=== PATIENT | female | born 2000 | race Caucasian/White ===

== ENCOUNTER 2024-04-28 17:21 | Emergency (ER) | payer OTHER, SELFPAY ==
[2024-04-28 17:27] VITALS: BP 117/94
[2024-04-28 17:51] LABS: % Basophils 0.7 % (0-2); % Eosinophils 1.2 % (0-6); % Immature Granulocytes 0.3 % (0-0.5); % Lymphocytes 39.9 % (20.5-51.1); % Monocytes 7.6 % (1.7-9.3); % Neutrophils 50.3 % (42.2-75.2); Absolute Eosinophils 0.1 10^3/uL (0-0.7); Absolute Lymphocytes 2.4 10^3/uL (1.2-3.4); Absolute Monocytes 0.5 10^3/uL (0.1-0.6); Mean Corp Hgb Conc. 34.2 g/dL (33.0-37.0); Mean Corpuscular Hgb 30.6 pg (27.0-31.0); Mean Corpuscular Volume 89.4 fL (81.0-99.0); Mean Platelet Volume 10.3 fL (7.4-10.4); Nucleated Red Blood Cells % 0 %; Platelet Count 311 10^3/uL (130-400); Red Blood Cell Count 4.25 10^6/uL (4.20-5.40); Red Cell Dist. Width 12.3 % (11.5-14.5)
[2024-04-28 18:11] LABS: HCG, Serum Qualitative Screen Negative
[2024-04-28 18:16] LABS: ALT (SGPT) 20 U/L (0-35); AST (SGOT) 28 U/L (14-36); Albumin 4.8 g/dl (3.5-5.0); Alkaline Phosphatase 57 U/L (38-126); Blood Urea Nitrogen 9 mg/dl (7-17); Calcium 9.3 mg/dl (8.4-10.2); Carbon Dioxide 25 mmol/L (22-30); Chloride 103 mmol/L (98-107); Glucose 106 mg/dl (70-99); Lipase 122 U/L (23-300); Potassium 3.6 mmol/L (3.5-5.1); Sodium 138 mmol/L (135-145); Total Bilirubin 0.6 mg/dl (0.2-1.3); Total Protein 7.3 g/dl (6.3-8.2); eGFR > 60.00
--- NOTE | 2024-04-28 18:49 | ED.GENMED ---
History of Present Illness
<Laura Swan PA-C - Last Filed: 04/29/24 00:27>
General
Chief Complaint: Abdominal Symptoms
Source: patient
Exam Limitations: none
Time Seen by Provider: 04/28/24 18:05
Nursing documentation reviewed up to this point in time: agreed with
History of Present Illness
History of Present Illness:
Patient is a 23-year-old female presenting to the emergency department with 3 weeks of lower abdominal discomfort and associated urinary frequency. Patient states she has had lower abdominal cramping type pain with some urinary frequency ongoing
for the past few weeks. She was seen in urgent care earlier today where she had urinalysis which showed possible infection although given ongoing symptoms patient was sent to the emergency department for further evaluation.
Patient denies any associated fever or chills. Patient denies any anorexia, nausea, vomiting, diarrhea, or constipation. All patient has been noticing some urinary frequency she denies any dysuria or hematuria. Patient denies any abnormal vaginal
bleeding or vaginal discharge. No history of STDs. She is sexually active with 1 partner. She is getting next week. Last menstrual period was last week.
Review of Systems
<Laura Swan PA-C - Last Filed: 04/29/24 00:27>
Review of Systems
Allergies reviewed?: Yes
All Other Systems: ROS reviewed and negative except as documented in HPI and ROS
Phy Exam
<Laura Swan PA-C - Last Filed: 04/29/24 00:27>
Physical Exam
Physical Exam:
Vitals: Hypertensive, otherwise vital signs stable. Afebrile
General: Patient is well appearing, no acute distress. Nontoxic-appearing
Skin: Warm and dry, no rashes or lesions
Head: Normocephalic, atraumatic
Eyes: Sclera nonicteric. EOMs intact. No nystagmus.
Throat: Protecting airway
Neck: Normal ROM, no cervical spine tenderness, no meningismus
Cardiac: Regular rate and rhythm, no murmurs.
Pulm: Normal respiratory effort, no wheezes, rales, rhonchi heard on exam.
Abdomen: Abdomen soft throughout with very mild suprapubic tenderness. No rebound tenderness or guarding. No rash. No CVA tenderness.
Extremities: No evidence of cyanosis or edema. Great distal pulse
Neuro: AAOx3. CN II-XII intact. No focal neurologic deficits.
Psychiatric: Normal affect.
Course
<Laura Swan PA-C - Last Filed: 04/29/24 00:27>
Orders/Labs/Results
Orders:
Orders
04/28/24 17:29
Test Result ONCE
04/28/24 17:34
Complete Blood Count/With Diff Urgent
Comprehensive Metabolic Panel Urgent
HCG, Serum Qualitative Screen Urgent
Lipase Urgent
Urinalysis Reflex To Culture Urgent
Date Specimen was Collected: 04/28/24
Time Specimen was Collected: 17:29
Urine Microscopic Reflex Cult Urgent
Urine Culture Urgent
MONIQUE Source: U
Specimen Description:
Date Specimen was Collected: 04/28/24
Time Specimen was Collected: 17:29
04/28/24 18:40
0.9% Sodium Chloride 1000 ml [Nss] 1,000 ml IV BOLUS
Ketorolac [Toradol] 15 mg IV NOW STA
US Kidneys [US Renal Only W/O Bladder] Urgent
Comment:
Reason For Exam: urinary frequency, lower abdominal pain
US Pelvis W Transvag Combined Urgent
Reason For Exam: lower abdominal pain
04/28/24 21:29
Sulfamethox./Trimethoprim Ds [Bactrim Ds 800 mg/160 mg] 1 tablet PO NOW STA
Abnormal Lab Results
04/28/24
17:34
Glucose 106 H mg/dl
(70-99)
Urine Ketones 1+ A
(Negative)
Urine Nitrite (Reflex) Positive A
(Negative)
Urine Bilirubin 3+ A
(Negative)
Urine Urobilinogen 4+ A
(Neg - 1+)
Leukocyte Esterase Rfl Trace A
(Negative)
Urine Bacteria (Reflex) Few A
(Negative)
04/28/24 17:34
04/28/24 17:34
Vital Signs
Initial and Last Documented VS:
Initial Vital Signs
Temp Pulse Resp BP Pulse Ox
98.4 F 64 18 117/94 93
04/28/24 17:27 04/28/24 17:27 04/28/24 17:27 04/28/24 17:27 04/28/24 17:27
Last Documented Vital Signs
Temp Pulse Resp BP Pulse Ox
98.4 F 63 16 120/78 99
04/28/24 17:27 04/28/24 20:21 04/28/24 20:21 04/28/24 20:21 04/28/24 20:21
<Ladi Sage MD - Last Filed: 04/28/24 21:19>
Orders/Labs/Results
Orders:
Orders
04/28/24 17:29
Test Result ONCE
04/28/24 17:34
Complete Blood Count/With Diff Urgent
Comprehensive Metabolic Panel Urgent
HCG, Serum Qualitative Screen Urgent
Lipase Urgent
Urinalysis Reflex To Culture Urgent
Date Specimen was Collected: 04/28/24
Time Specimen was Collected: 17:29
Urine Microscopic Reflex Cult Urgent
Urine Culture Urgent
MONIQUE Source: U
Specimen Description:
Date Specimen was Collected: 04/28/24
Time Specimen was Collected: 17:29
04/28/24 18:40
0.9% Sodium Chloride 1000 ml [Nss] 1,000 ml IV BOLUS
Ketorolac [Toradol] 15 mg IV NOW STA
US Kidneys [US Renal Only W/O Bladder] Urgent
Comment:
Reason For Exam: urinary frequency, lower abdominal pain
US Pelvis W Transvag Combined Urgent
Reason For Exam: lower abdominal pain
04/28/24 21:29
Sulfamethox./Trimethoprim Ds [Bactrim Ds 800 mg/160 mg] 1 tablet PO NOW STA
Abnormal Lab Results
04/28/24
17:34
Glucose 106 H mg/dl
(70-99)
Urine Ketones 1+ A
(Negative)
Urine Nitrite (Reflex) Positive A
(Negative)
Urine Bilirubin 3+ A
(Negative)
Urine Urobilinogen 4+ A
(Neg - 1+)
Leukocyte Esterase Rfl Trace A
(Negative)
Urine Bacteria (Reflex) Few A
(Negative)
04/28/24 17:34
04/28/24 17:34
Vital Signs
Initial and Last Documented VS:
Initial Vital Signs
Temp Pulse Resp BP Pulse Ox
98.4 F 64 18 117/94 93
04/28/24 17:27 04/28/24 17:27 04/28/24 17:27 04/28/24 17:27 04/28/24 17:27
Last Documented Vital Signs
Temp Pulse Resp BP Pulse Ox
98.4 F 63 16 120/78 99
04/28/24 17:27 04/28/24 20:21 04/28/24 20:21 04/28/24 20:21 04/28/24 20:21
<Laura Swan PA-C - Last Filed: 04/29/24 00:27>
MDM/Problems Addressed
Differential Diagnosis Includes:
Not limited to: UTI, pyelonephritis, ovarian cyst, ovarian torsion, kidney stone, endometriosis
MDM/Problems Addressed:
23-year-old female presenting with 3 weeks of lower abdominal discomfort and associated urinary frequency. No associated fever, chills, nausea, vomiting, diarrhea, constipation. No dysuria or hematuria. No abnormal vaginal charge or bleeding.
Patient sent from urgent care for further evaluation. Vital signs are stable on arrival, patient is afebrile. Physical exam as above. Patient is very well-appearing, in no apparent distress. Abdomen is soft with very mild suprapubic tenderness.
No rebound tenderness or guarding. There is no CVA tenderness. No overlying rash, ecchymoses of abdomen. Heart regular rate and rhythm. Lungs clear bilaterally. Labs were obtained in triage which show no clinically significant abnormalities.
No leukocytosis. test is negative. Will obtain urinalysis. Will give patient IV fluids, 15 of Toradol. Will check pelvic ultrasound and ultrasound of kidneys to rule out hydroureter or any signs of obstructive process.
Urinalysis noted. Possible UTI given positive nitrate and leukocyte Estrace although few WBCs seen. A urine culture will be sent. Pelvic ultrasound shows no evidence of acute abnormality. Possible small uterine fibroid which I do not suspect to
be causing patient symptoms. There is bilateral ovarian blood flow documented. Renal ultrasound without any abnormalities.
I do doubt intra-abdominal infection given symptoms been ongoing for the past 3 weeks and patient is afebrile without any leukocytosis any benign abdominal exam. Will treat patient for suspected mild urinary tract infection with a course of
Bactrim. Advised patient to follow-up with primary care and [facility] in a few days if symptoms persist for further evaluation. Return precautions discussed with patient at length. She is comfortable with plan. Patient seen with attending physician
Chronic conditions affecting care:
N/A
Acute Exacerbation and/or Progression of Chronic Illness:
N/A
<Laura Swan PA-C - Last Filed: 04/29/24 00:27>
*Radiology
Radiology exam reviewed: radiology read reviewed
*Pulse Oximetry
Patient hypoxic: no
*EKG
Interpreted by ED Provider?: NA
*Insecticide Maker Interpretation
Rate: Insecticide Maker- N/A
*Critical Care Note
Total Time (30-74mins, 75-104mins- exclusive of procedures): Not Applicable
ED Attending Note
<Laura Swan PA-C - Last Filed: 04/29/24 00:27>
-
Portions of this chart may have been created with voice recognition software.� Occasional wrong word or��sound alike� substitutions may have occurred due to the inherent limitations of voice recognition software.
<Ladi Sage MD - Last Filed: 04/28/24 21:19>
ED Attending Note
Patient seen and examined by attending physician: Yes
I performed the substantive portion of visit, reviewed & personally made and approve the management plan that is documented in note by myself or ANUJ.: Yes
ED Attending Note:
Patient looks extremely well and comfortable. Patient complains of increased frequency of urination and lower abdominal pain for 2 weeks. Patient has no fever or elevated white blood cell count. On exam, her abdomen is soft and she has no
specific area of tenderness. Is doubtful she has an intra-abdominal infection given the timeframe, her lack of elevated white blood cell count, and her being afebrile. Patient may have UTI. Patient also may have bacterial vaginitis, however, she
does deny any fishy discharge.
Discharge Plan
Departure
Patient Disposition: Home (Routine Discharge)
Date of Disposition: 04/28/24
Time of Disposition: 21:18
Patient with high blood pressure during this ER visit?: No
Discharge Problem:
Abdominal pain, UTI (urinary tract infection)
Instructions: Urinary Tract Infection, Adult ED, Abdominal Pain
Prescriptions:
New
sulfamethoxazole-trimethoprim [Bactrim DS] 800-160 mg tablet
1 tab PO BID 7 Days Qty: 14 0RF
Referrals:
Eldon Pabon PA-C [Family Provider] - Follow up in 2-3 days
Activity Restrictions/Additional Instructions:
RETURN TO THE EMERGENCY DEPARTMENT WITH ANY FEVERS, CHILLS, WORSENING ABDOMINAL PAIN, SEVERE BACK PAIN, INTRACTABLE NAUSEA/VOMITING, INTRACTABLE PAIN, WORSENING IN CURRENT SYMPTOMS OR ANY OTHER CONCERNS
-Prescription has been sent to your pharmacy. You can take this twice a day for the next 1 week
-It is important that you stay well-hydrated. You can take Tylenol and/or Motrin as needed for discomfort.
-It is important you follow-up with your primary care provider and/or [facility] for further evaluation/management if symptoms persist
Monitor your symptoms closely return to the emergency department any acute worsening/new symptoms
Interventions
Interventions:
*Risk Screen - Suicide Last Done: 04/28/24 17:27
*General Assessment Last Done: 04/28/24 17:27
*Neglect/Abuse Screening Last Done: 04/28/24 17:27
ED- Fall Risk Assessment Last Done: 04/28/24 21:39
*ED COVID-19 Vaccine History Last Done: 04/28/24 17:27
*Nursing Disposition Last Done: 04/28/24 21:39
FL-Qgdmvc-Uzgvcezcze Assessment Last Done: 04/28/24 17:35
Discharge Date and Time
Discharge Date/Time: 04/28/24 21:39
Print Language: [id number]
[2024-04-28 18:51] LABS: Urine Albumin Negative (Neg - Trace); Urine Bilirubin 3+ (Negative); Urine Character Clear (Clear); Urine Glucose Negative (Negative); Urine Ketone 1+ (Negative); Urine Leukocyte Trace (Negative); Urine Nitrite Positive (Negative); Urine Occult Blood Negative (Negative); Urine Specific Gravity 1.015 (<1.030); Urine Urobilinogen 4+ (Neg - 1+)
[2024-04-28] MEDS: TORADOL 15 MG IV (18:53)
[2024-04-28] MEDS: NSS 1000 IV (18:53)
[2024-04-28 18:55] LABS: Urine Color Orange
[2024-04-28 19:11] LABS: Urine Red Blood Cell 0-2 /HPF (0-2)
[2024-04-28 19:12] LABS: Urine Bacteria Few (Negative)
[2024-04-28 20:21] VITALS: BP 120/78
[2024-04-28] MEDS: BACTRIM DS 800 MG/160 MG 1 TABLET PO (21:34)
== END 2024-04-28 21:39 | disposition home or self-care (01) ==
LOC: EMR 17:21
PROVIDERS: Emergency Medicine; EMERGENCY PHYSICIAN Emergency Medicine; FAMILY PHYSICIAN Physician Assistant Medical
DX: N39.0 Urinary tract infection, site not specified (principal); R10.32 Left lower quadrant pain; R10.31 Right lower quadrant pain
CPT/HCPCS: 99284; 96374; 96361; 76775; 76830; 76856; 80053; 81003; 81015; 83690; 84703; 85025; 87086